=== PATIENT | male | born 1945 | race Caucasian/White ===

== ENCOUNTER 2017-09-17 08:42 | Day surgery (SDC) | payer MEDICARE ==
[2017-09-14 10:21] LABS: BASOPHILS # (AUTO) 0.07 x10^3/uL (0-0.1); BASOPHILS % (AUTO) 1 % (0-1); EOSINOPHILS # (AUTO) 0.28 x10^3/uL (0-0.4); EOSINOPHILS % (AUTO) 3 % (1-7); LYMPHOCYTES # (AUTO) 1.94 x10^3/uL (1-3.4); LYMPHOCYTES % (AUTO) 21 % (22-44); MD NO; MEAN CORPUSCULAR HGB CONC 34.9 g/dL (33.2-36.2); MEAN CORPUSCULAR VOLUME 97.5 fL (81-97); MEAN PLATELET VOLUME 9.1 fL (7.4-10.4); MONOCYTES # (AUTO) 0.69 x10^3/uL (0.2-0.8); MONOCYTES % (AUTO) 7 % (2-9); NEUTROPHILS # (AUTO) 6.38 x10^3/uL (1.8-6.8); NEUTROPHILS % (AUTO) 68 % (42-75); PLATELET COUNT 200 x10^3/uL (130-400); RED BLOOD COUNT 4.27 x10^6/uL (4.38-5.82); RED CELL DISTRIBUTION WIDTH 13.4 % (9.4-14.8)
[2017-09-14 10:27] LABS: ALANINE AMINOTRANSFERASE 26 U/L (12-78); ALBUMIN 3.5 g/dL (3.4-5.0); ANION GAP 7 mmol/L (5-15); CHLORIDE 114 mmol/L (98-107); CREATININE 0.77 mg/dL (0.7-1.3)
[2017-09-14 10:29] LABS: ALKALINE PHOSPHATASE 97 U/L (45-117); BILIRUBIN,TOTAL 0.5 mg/dL (0.2-1.0); TOTAL PROTEIN 6.5 g/dL (6.4-8.2)
[~2017-09-17] VITALS: Ht 175.3 cm; Wt 90.8 kg
[~2017-09-17 08:42] MED LIST: ASPI-496 PO; FOCUS PO; IBUP200T49 PO; LISI40TA PO; MULT1TAB60 PO; NAPR250T6 PO; NIAC250T7 PO
[2017-09-17] MEDS ORDERED: LACTATED RINGERS 1,000 ML IV SCH (08:56)
[2017-09-17] MEDS ORDERED: GABAPENTIN 300 MG CAPSULE PO ONE (09:00)
[2017-09-17] MEDS ORDERED: ACETAMINOPHEN 500 MG TABLET PO ONE (09:00)
[2017-09-17 09:33] VITALS: BP 158/83
[2017-09-17] MEDS ORDERED: FENTANYL PF 100 MCG/2ML ONE (10:23)
[2017-09-17] MEDS ORDERED: DEXAMETHASONE 4 MG/ML, 1ML ONE (10:26)
[2017-09-17] MEDS ORDERED: SUCCINYLCHOLINE 20 MG/ML, 10ML ONE (10:26)
[2017-09-17] MEDS ORDERED: NEOSTIGMINE 1 MG/ML, 10ML ONE (10:26)
[2017-09-17] MEDS ORDERED: LIDOCAINE GEL 2%, 5ML ONE (10:26)
[2017-09-17] MEDS ORDERED: GLYCOPYRROLATE 0.2MG/1ML, 5ML ONE (10:26)
[2017-09-17] MEDS ORDERED: PROPOFOL 10 MG/ML, 20ML ONE (10:26)
[2017-09-17] MEDS ORDERED: CEFAZOLIN 1,000 MG ONE (10:26)
[2017-09-17] MEDS ORDERED: ONDANSETRON 2MG/ML, 2ML ONE (10:26)
[2017-09-17] MEDS ORDERED: ROCURONIUM 10MG/ML,5ML ONE (10:26)
[2017-09-17] MEDS ORDERED: BUPIVACAINE/PF-EPI 0.5% 1:200K ONE ×2 (10:35→10:57)
[2017-09-17] MEDS ORDERED: KETOROLAC 30 MG/1 ML ONE (11:43)
[2017-09-17] MEDS ORDERED: FENTANYL PF 100 MCG/2ML IV PRN (12:30)
[2017-09-17] MEDS ORDERED: PROMETHAZINE 25 MG/ML, 1ML IV PRN (12:30)
[2017-09-17] MEDS ORDERED: MIDAZOLAM 1 MG/ML, 2ML IV PRN (12:30)
[2017-09-17] MEDS ORDERED: ONDANSETRON 2MG/ML, 2ML IV PRN (12:30)
[2017-09-17] MEDS ORDERED: ALBUTEROL/IPRATROPIUM 2.5MG/0.5MG, 3 ML NPPB PRN (12:30)
[2017-09-17] MEDS ORDERED: LABETALOL 5MG/ML, 20ML IV PRN (12:30)
[2017-09-17] MEDS ORDERED: OXYcodone 5 MG/5 ML ORAL.SOL UDC PO PRN (12:30)
[2017-09-17] MEDS ORDERED: SCOPOLAMINE PATCH, 1.5MG PATCH.TD72 TD PRN (12:30)
[2017-09-17] MEDS ORDERED: OXYcodone 5 MG/5 ML ORAL.SOL UDC ONE (13:05)
[2017-09-17] MEDS ORDERED: HYDROmorphone 2 MG/ML, 1ML ONE (13:05)
[2017-09-17] MEDS: HYDROmorphone 1 MG/ML, 1ML IV PRN ×3 (13:09→13:34)
== END 2017-09-17 19:12 | disposition home or self-care (01) ==
LOC: OUT 08:42
PROVIDERS: ATTEND Surgery
DX: K40.91 Unilateral inguinal hernia, without obstruction or gangrene, recurrent (principal); I10 Essential (primary) hypertension; G89.29 Other chronic pain; Z90.49 Acquired absence of other specified parts of digestive tract
CPT/HCPCS: 36415; 49651; 80053; 85025; 93005; J0330; J0690; J1100; J1170; J1885; J2405; J2704; J2710; J3010; J3490; J7120; C1781

== ENCOUNTER → 2018-05-13 | Outpatient (CLI) | payer MEDICARE ==
[~2018-05-13] MED LIST changes: +REGADENOSON 0.4 MG/5 ML SYRINGE ONE
== END | disposition home or self-care (01) ==
LOC: CFH 11:54
PROVIDERS: ATTEND Internal Medicine Cardiovascular Disease
DX: Z01.810 Encounter for preprocedural cardiovascular examination (principal); I35.1 Nonrheumatic aortic (valve) insufficiency; I25.9 Chronic ischemic heart disease, unspecified; I10 Essential (primary) hypertension; Z87.891 Personal history of nicotine dependence
CPT/HCPCS: 78452; 93017; 93306; A9502; J2785

== ENCOUNTER 2018-06-27 08:13 | Day surgery (SDC) | payer MEDICARE ==
[2018-06-25 10:13] VITALS: BP 156/84
[2018-06-25 10:20] LABS: BASOPHILS # (AUTO) 0.09 x10^3/uL (0-0.1); BASOPHILS % (AUTO) 1 % (0-1); EOSINOPHILS # (AUTO) 0.28 x10^3/uL (0-0.4); EOSINOPHILS % (AUTO) 3 % (1-7); LYMPHOCYTES # (AUTO) 1.96 x10^3/uL (1-3.4); LYMPHOCYTES % (AUTO) 20 % (22-44); MD NO; MEAN CORPUSCULAR HEMOGLOBIN 34.3 pg (27.5-34.5); MEAN CORPUSCULAR HGB CONC 34.9 g/dL (33.2-36.2); MEAN CORPUSCULAR VOLUME 98.2 fL (81-97); MEAN PLATELET VOLUME 9.2 fL (7.4-10.4); MONOCYTES # (AUTO) 0.56 x10^3/uL (0.2-0.8); MONOCYTES % (AUTO) 6 % (2-9); NEUTROPHILS # (AUTO) 6.91 x10^3/uL (1.8-6.8); NEUTROPHILS % (AUTO) 71 % (42-75); PLATELET COUNT 146 x10^3/uL (130-400); RED BLOOD COUNT 4.54 x10^6/uL (4.38-5.82); RED CELL DISTRIBUTION WIDTH 13.6 % (9.4-14.8)
[2018-06-25 10:28] LABS: INTERNATIONAL NORMALIZED RATIO 1.04 (0.93-1.1); PROTHROMBIN TIME 10.9 Seconds (9.6-11.5)
[2018-06-25 10:29] LABS: ANION GAP 5 mmol/L (5-15); CALCIUM 9.3 mg/dL (8.5-10.1); CHLORIDE 116 mmol/L (98-107)
[2018-06-25 10:30] LABS: CREATININE 0.85 mg/dL (0.7-1.3)
[~2018-06-27] VITALS: Ht 175.3 cm; Wt 95.5 kg
[~2018-06-27 08:13] MED LIST changes: +ASA/500T PO; +CHOL100012 PO; +IRON18TA PO; -REGADENOSON 0.4 MG/5 ML SYRINGE ONE; +TELM80TA PO; +VITA10004 PO
[2018-06-27] MEDS ORDERED: SODIUM CHLORIDE 0.9% 1,000 ML IV SCH ×2 (08:24→12:00)
[2018-06-27] MEDS ORDERED: DIPHENHYDRAMINE 50 MG/ML, 1ML IVPush ONE (08:30)
[2018-06-27] MEDS ORDERED: DIPHENHYDRAMINE 50 MG/ML, 1ML ONE (08:45)
[2018-06-27] MEDS ORDERED: VERAPAMIL 2.5 MG/ML, 2ML ONE (10:40)
[2018-06-27] MEDS ORDERED: FENTANYL PF 100 MCG/2ML ONE (10:40)
[2018-06-27] MEDS ORDERED: NITROGLYCERIN 5 MG/ML, 10ML ONE (10:40)
[2018-06-27] MEDS ORDERED: TICAGRELOR 90 MG TABLET ONE (10:40)
[2018-06-27] MEDS ORDERED: BIVALIRUDIN 250 MG ONE (10:40)
[2018-06-27] MEDS ORDERED: MIDAZOLAM 1 MG/ML, 5ML ONE (10:40)
[2018-06-27] MEDS ORDERED: HEPARIN 1,000 UNITS/ML, 10ML ONE (10:41)
[2018-06-27] MEDS ORDERED: LIDOCAINE 2%, 20ML ONE (10:41)
== END 2018-06-27 14:45 | disposition home or self-care (01) ==
LOC: CACL 08:13
PROVIDERS: ATTEND Internal Medicine Cardiovascular Disease
DX: I25.10 Atherosclerotic heart disease of native coronary artery without angina pectoris (principal); I10 Essential (primary) hypertension; Z87.891 Personal history of nicotine dependence; Z79.899 Other long term (current) drug therapy; Z79.01 Long term (current) use of anticoagulants
CPT/HCPCS: 36415; 80048; 85025; 85610; 85730; 93458; 99156; 99157; C1769; C1894; J1200; J1644; J2250; J3010; Q9967; J0583

== ENCOUNTER 2018-08-27 09:42 | Outpatient (CLI) | payer MEDICARE, OTHER ==
[2018-08-27] MEDS ORDERED: ASPI325T17 PO (10:35)
[2018-08-27 11:38] LABS: ALANINE AMINOTRANSFERASE 26 U/L (12-78); ANION GAP 9 mmol/L (5-15); CALCIUM 9.6 mg/dL (8.5-10.1); CHLORIDE 112 mmol/L (98-107)
[2018-08-27 11:40] LABS: MICROSCOPIC NOT IND
[2018-08-27 11:41] LABS: ALKALINE PHOSPHATASE 96 U/L (45-117); BILIRUBIN,TOTAL 1.2 mg/dL (0.2-1.0); CREATININE 0.92 mg/dL (0.7-1.3); TOTAL PROTEIN 6.8 g/dL (6.4-8.2)
[2018-08-27 11:47] LABS: CULTURE INDICATED? NO
[2018-08-27 12:28] LABS: BASOPHILS # (AUTO) 0.04 x10^3/uL (0-0.1); BASOPHILS % (AUTO) 1 % (0-1); EOSINOPHILS # (AUTO) 0.25 x10^3/uL (0-0.4); EOSINOPHILS % (AUTO) 3 % (1-7); LYMPHOCYTES # (AUTO) 1.89 x10^3/uL (1-3.4); LYMPHOCYTES % (AUTO) 21 % (22-44); MD NO; MEAN CORPUSCULAR HEMOGLOBIN 34.5 pg (27.5-34.5); MEAN CORPUSCULAR HGB CONC 34.4 g/dL (33.2-36.2); MEAN CORPUSCULAR VOLUME 100.4 fL (81-97); MEAN PLATELET VOLUME 10.1 fL (7.4-10.4); MONOCYTES % (AUTO) 7 % (2-9); NEUTROPHILS # (AUTO) 6.05 x10^3/uL (1.8-6.8); NEUTROPHILS % (AUTO) 69 % (42-75); PLATELET COUNT 159 x10^3/uL (130-400); RED BLOOD COUNT 4.64 x10^6/uL (4.38-5.82); RED CELL DISTRIBUTION WIDTH 14.1 % (9.4-14.8)
== END 2018-08-27 23:59 | disposition home or self-care (01) ==
LOC: STAR 09:42
PROVIDERS: ATTEND Orthopaedic Surgery
DX: Z01.818 Encounter for other preprocedural examination (principal); I44.0 Atrioventricular block, first degree; I45.10 Unspecified right bundle-branch block; M17.11 Unilateral primary osteoarthritis, right knee; M25.562 Pain in left knee
CPT/HCPCS: 36415; 80053; 81003; 85025; 87081; 87147; 87806; 93005; G0475

== ENCOUNTER 2018-09-02 06:03 | Observation (INO) | payer MEDICARE, OTHER ==
[~2018-09-02] VITALS: Ht 175.3 cm; Wt 95.2 kg
[~2018-09-02 06:03] MED LIST changes: +ASPI325T17 PO
[2018-09-02] MEDS ORDERED: LACTATED RINGERS 1,000 ML IV SCH (06:23)
[2018-09-02 06:27] VITALS: BP 148/77
[2018-09-02] MEDS ORDERED: VANCOMYCIN PMX 1GM/200ML 200 ML IVPB ONE ×2 (06:30→07:30)
[2018-09-02] MEDS ORDERED: KETOROLAC 60 MG/2 ML ONE (06:33)
[2018-09-02] MEDS ORDERED: TRANEXAMIC ACID 100 MG/ML, 10ML ONE (06:33)
[2018-09-02] MEDS ORDERED: morphine SULFATE/PF 1 MG/ML, 10ML ONE (06:34)
[2018-09-02] MEDS ORDERED: EPINEPHRINE 1 MG/ML, 1ML ONE (06:34)
[2018-09-02] MEDS ORDERED: ROPIvacaine/PF 0.2%, 20 ML ONE (06:34)
[2018-09-02] MEDS ORDERED: SODIUM CHLORIDE 0.9% 50 ML ONE (06:34)
[2018-09-02] MEDS ORDERED: BACITRACIN 50,000 UNIT ONE (06:34)
[2018-09-02] MEDS ORDERED: MIDAZOLAM 1 MG/ML, 2ML ONE (07:10)
[2018-09-02] MEDS ORDERED: FENTANYL PF 250 MCG/5ML ONE (07:10)
[2018-09-02] MEDS: D5%-0.45% NACL 1,000 ML IV SCH ×4 (07:23→19:33)
[2018-09-02] MEDS ORDERED: SUCCINYLCHOLINE 20 MG/ML, 10ML ONE (07:28)
[2018-09-02] MEDS ORDERED: ROCURONIUM 10 MG/ML,10ML ONE (07:28)
[2018-09-02] MEDS ORDERED: DEXAMETHASONE 4 MG/ML, 1ML ONE (07:28)
[2018-09-02] MEDS ORDERED: CEFAZOLIN 1,000 MG ONE (07:28)
[2018-09-02] MEDS ORDERED: PROPOFOL 10 MG/ML, 20ML ONE (07:28)
[2018-09-02] MEDS ORDERED: ONDANSETRON 2MG/ML, 2ML ONE (07:28)
[2018-09-02] MEDS ORDERED: DIPHENHYDRAMINE 50 MG CAPSULE PO PRN (07:30)
[2018-09-02] MEDS ORDERED: LORazepam 2 MG/ML, 1ML IVPush PRN (07:30)
[2018-09-02] MEDS ORDERED: ACETAMINOPHEN 325 MG TABLET PO PRN (07:30)
[2018-09-02] MEDS ORDERED: morphine SULFATE 10 MG/ML, 1ML IVPush PRN (07:30)
[2018-09-02] MEDS ORDERED: ONDANSETRON 2MG/ML, 2ML IVPush PRN ×2 (07:30→08:00)
[2018-09-02] MEDS ORDERED: ALBUTEROL SULFATE 2.5 MG/3 ML NPPB PRN (08:00)
[2018-09-02] MEDS ORDERED: HYDROmorphone 1 MG/ML, 1ML INJ IV PRN (08:00)
[2018-09-02] MEDS ORDERED: MEPERIDINE/PF 25MG/0.5ML IVPush PRN (08:00)
[2018-09-02] MEDS ORDERED: KETOROLAC 30 MG/1 ML IV PRN (08:00)
[2018-09-02] MEDS ORDERED: LABETALOL 5MG/ML, 20ML IV PRN (08:00)
[2018-09-02] MEDS ORDERED: hydrALAzine 20 MG/ML, 1ML IV PRN (08:00)
[2018-09-02] MEDS ORDERED: METOCLOPRAMIDE 5 MG/ML, 2ML IV PRN (08:00)
[2018-09-02] MEDS ORDERED: PROMETHAZINE 25 MG/ML, 1ML IV PRN (08:00)
[2018-09-02] MEDS ORDERED: FENTANYL PF 100 MCG/2ML ONE (09:35)
[2018-09-02] MEDS ORDERED: OXYcodone 5 MG/5 ML ORAL.SOL UDC ONE ×2 (09:35→10:02)
[2018-09-02] MEDS ORDERED: ACETAMINOPHEN 650 MG/20.3 ML UDC ONE (09:35)
[2018-09-02] MEDS: OXYcodone 5 MG/5 ML ORAL.SOL UDC PO PRN ×2 (09:37→10:03)
[2018-09-02] MEDS: FENTANYL PF 100 MCG/2ML IV PRN ×3 (09:40→10:16)
[2018-09-02 11:00] VITALS: BP 119/62
[2018-09-02] MEDS: IRON MC SCH ×2 (11:30→19:29)
[2018-09-02] MEDS: [UNRECOGNIZED DRUG - OTHER] PO SCH ×3 (11:30→21:48)
[2018-09-02] MEDS: CHOLECALCIFEROL MC SCH ×2 (11:30→19:29)
[2018-09-02 12:15] VITALS: BP 118/67
[2018-09-02] MEDS ORDERED: TRANEXAMIC ACID 1,000 MG in SODIUM CHLORIDE 0.9% 100 ML IV ONE (13:00)
[2018-09-02] MEDS: CEFAZOLIN PMX 2GM/50ML 50 ML IVPB SCH ×2 (15:26→23:32)
[2018-09-02] MEDS: OXYcodone/APAP 7.5/325MG TABLET PO PRN ×3 (15:26→23:32)
[2018-09-02 19:01] VITALS: BP 113/62
[2018-09-02] MEDS ORDERED: ZOLPIDEM 5MG TABLET PO PRN (21:00)
[2018-09-03 00:11] VITALS: BP 95/50
[2018-09-03] MEDS: IRON MC SCH ×2 (03:13→09:51)
[2018-09-03] MEDS: D5%-0.45% NACL 1,000 ML IV SCH ×3 (03:13→09:51)
[2018-09-03] MEDS: CHOLECALCIFEROL MC SCH ×2 (03:13→09:51)
[2018-09-03] MEDS: [UNRECOGNIZED DRUG - OTHER] PO SCH ×2 (03:14→09:51)
[2018-09-03] MEDS: OXYcodone/APAP 7.5/325MG TABLET PO PRN ×3 (03:33→11:41)
[2018-09-03 03:39] VITALS: BP 94/50
[2018-09-03 07:28] VITALS: BP 123/62
[2018-09-03] MEDS: CEFAZOLIN PMX 2GM/50ML 50 ML IVPB SCH (07:51)
[2018-09-03] MEDS ORDERED: ASPIRIN 325 MG TABLET EC PO SCH (08:00)
[2018-09-03] MEDS ORDERED: DOCUSATE 100 MG CAPSULE PO SCH (09:00)
[2018-09-03] MEDS ORDERED: LOSARTAN 50MG TABLET PO SCH (09:00)
[2018-09-03] MEDS ORDERED: IBUPROFEN 200 MG TABLET PO SCH (09:00)
[2018-09-03 10:34] VITALS: BP 134/66
[2018-09-06] MEDS ORDERED: VITAMIN A 10,000 UNIT CAPSULE PO SCH (09:00)
== END 2018-09-03 13:00 | disposition home or self-care (01) ==
LOC: OUT 06:03 → ORIP 07:23 → 4NOR 10:50
PROVIDERS: ADMIT Orthopaedic Surgery; ATTEND Orthopaedic Surgery
DX: M17.12 Unilateral primary osteoarthritis, left knee (principal)
CPT/HCPCS: 27447; 36415; 73564; 85018; 96365; 96366; 96367; 96375; 97110; 97161; 97165; C1713; C1776; G0378; J0171; J0330; J0690; J1100; J1885; J2250; J2270; J2274; J2405; J2704; J2795; J3010; J3370; J7120

== ENCOUNTER → 2018-12-24 | Outpatient (CLI) | payer MEDICARE, OTHER ==
[2018-12-24 12:59] LABS: BASOPHILS # (AUTO) 0.03 x10^3/uL (0-0.1); BASOPHILS % (AUTO) 0 % (0-1); EOSINOPHILS % (AUTO) 3 % (1-7); LYMPHOCYTES # (AUTO) 1.71 x10^3/uL (1-3.4); LYMPHOCYTES % (AUTO) 24 % (22-44); MD NO; MEAN CORPUSCULAR HGB CONC 33.7 g/dL (33.2-36.2); MEAN CORPUSCULAR VOLUME 94.8 fL (81-97); MEAN PLATELET VOLUME 9.5 fL (7.4-10.4); MONOCYTES # (AUTO) 0.56 x10^3/uL (0.2-0.8); MONOCYTES % (AUTO) 8 % (2-9); NEUTROPHILS # (AUTO) 4.71 x10^3/uL (1.8-6.8); NEUTROPHILS % (AUTO) 65 % (42-75); PLATELET COUNT 156 x10^3/uL (130-400); RED BLOOD COUNT 4.88 x10^6/uL (4.38-5.82); RED CELL DISTRIBUTION WIDTH 15.3 % (9.4-14.8)
[2018-12-24 15:16] LABS: CHLORIDE 113 mmol/L (98-107)
[2018-12-24 15:22] LABS: ALANINE AMINOTRANSFERASE 26 U/L (12-78); ALKALINE PHOSPHATASE 114 U/L (45-117); ANION GAP 6 mmol/L (5-15); BILIRUBIN, DIRECT 0.2 mg/dL (0.1-0.2); BILIRUBIN,TOTAL 0.8 mg/dL (0.2-1.0); CALCIUM 9.1 mg/dL (8.5-10.1); CHOL/HDL RATIO 2.5; CHOLESTEROL, TOTAL 132 mg/dL (140-239); CREATININE 0.85 mg/dL (0.7-1.3); HDL CHOL % 39 % (26-37); HDL CHOLESTEROL (DIRECT) 52 mg/dL (40-60); LDL CHOLESTEROL,CALCULATED 62 mg/dL (54-169); LDL/HDL RATIO 1.2 (0.5-3.0); TRIGLYCERIDES 89 mg/dL (50-200); VLDL CHOLESTEROL 18 mg/dL (0-25)
== END | disposition home or self-care (01) ==
LOC: CFH 09:19
PROVIDERS: ATTEND Internal Medicine Cardiovascular Disease
DX: I25.10 Atherosclerotic heart disease of native coronary artery without angina pectoris (principal); I10 Essential (primary) hypertension; E78.2 Mixed hyperlipidemia; Z87.891 Personal history of nicotine dependence; Z82.49 Family history of ischemic heart disease and other diseases of the circulatory system
CPT/HCPCS: 36415; 80053; 80061; 82248; 85025

== ENCOUNTER 2019-01-24 09:57 | Outpatient (CLI) | payer MEDICARE, OTHER ==
[2019-01-24] MEDS ORDERED: ROSU20TA2 PO (10:21)
[2019-01-24 10:58] LABS: BASOPHILS # (AUTO) 0.04 x10^3/uL (0-0.1); BASOPHILS % (AUTO) 1 % (0-1); EOSINOPHILS # (AUTO) 0.31 x10^3/uL (0-0.4); EOSINOPHILS % (AUTO) 4 % (1-7); LYMPHOCYTES # (AUTO) 1.46 x10^3/uL (1-3.4); LYMPHOCYTES % (AUTO) 20 % (22-44); MD NO; MEAN CORPUSCULAR HEMOGLOBIN 33.3 pg (27.5-34.5); MEAN CORPUSCULAR HGB CONC 33.9 g/dL (33.2-36.2); MEAN CORPUSCULAR VOLUME 98.4 fL (81-97); MONOCYTES # (AUTO) 0.66 x10^3/uL (0.2-0.8); MONOCYTES % (AUTO) 9 % (2-9); NEUTROPHILS # (AUTO) 4.92 x10^3/uL (1.8-6.8); NEUTROPHILS % (AUTO) 67 % (42-75); PLATELET COUNT 180 x10^3/uL (130-400); RED BLOOD COUNT 4.53 x10^6/uL (4.38-5.82); RED CELL DISTRIBUTION WIDTH 15.7 % (9.4-14.8)
[2019-01-24 11:10] LABS: ALBUMIN 3.9 g/dL (3.4-5.0); ANION GAP 5 mmol/L (5-15); CALCIUM 10.1 mg/dL (8.5-10.1); CHLORIDE 113 mmol/L (98-107)
[2019-01-24 11:13] LABS: ALANINE AMINOTRANSFERASE 44 U/L (12-78); ALKALINE PHOSPHATASE 110 U/L (45-117); BILIRUBIN,TOTAL 0.9 mg/dL (0.2-1.0); CREATININE 0.88 mg/dL (0.7-1.3); TOTAL PROTEIN 7.1 g/dL (6.4-8.2)
[2019-01-24 11:14] LABS: MICROSCOPIC AUTO
[2019-01-24 11:19] LABS: CULTURE INDICATED? NO
== END 2019-01-24 23:59 | disposition home or self-care (01) ==
LOC: STAR 09:57
PROVIDERS: ATTEND Orthopaedic Surgery
DX: Z01.818 Encounter for other preprocedural examination (principal); M17.11 Unilateral primary osteoarthritis, right knee; I45.10 Unspecified right bundle-branch block; I44.4 Left anterior fascicular block; R94.31 Abnormal electrocardiogram [ECG] [EKG]
CPT/HCPCS: 36415; 80053; 81001; 85025; 87081; 87389; 93005

== ENCOUNTER 2019-02-03 10:09 | Observation (INO) | payer MEDICARE, OTHER ==
[~2019-02-03] VITALS: Ht 175.3 cm; Wt 94.6 kg
[~2019-02-03 10:09] MED LIST changes: +BACITRACIN 50,000 UNIT ONE; +EPINEPHRINE 1 MG/ML, 1ML ONE; +KETOROLAC 60 MG/2 ML ONE; +ROPIvacaine/PF 0.2%, 20 ML ONE; +ROSU20TA2 PO; +SODIUM CHLORIDE 0.9% 50 ML ONE; +TRANEXAMIC ACID 100 MG/ML, 10ML ONE; +morphine SULFATE/PF 1 MG/ML, 10ML ONE
[2019-02-03] MEDS ORDERED: VANCOMYCIN PMX 1GM/200ML 200 ML IV STA (10:26)
[2019-02-03] MEDS ORDERED: LACTATED RINGERS 1,000 ML IV SCH (10:37)
[2019-02-03] MEDS ORDERED: ACETAMINOPHEN 500 MG TABLET PO ONE (11:00)
[2019-02-03] MEDS ORDERED: GABAPENTIN 300 MG CAPSULE PO ONE (11:00)
[2019-02-03] MEDS ORDERED: ONDANSETRON ODT 8 MG PO ONE (11:00)
[2019-02-03] MEDS ORDERED: MIDAZOLAM 1 MG/ML, 2ML ONE (11:42)
[2019-02-03] MEDS ORDERED: FENTANYL PF 250 MCG/5ML ONE (11:42)
[2019-02-03] MEDS ORDERED: PROPOFOL 50 ML ONE (11:42)
[2019-02-03] MEDS: D5%-0.45% NACL 1,000 ML IV SCH ×2 (12:04→19:58)
[2019-02-03] MEDS ORDERED: CEFAZOLIN 1,000 MG ONE (12:11)
[2019-02-03] MEDS ORDERED: PROMETHAZINE 25 MG/ML, 1ML IV PRN (12:30)
[2019-02-03] MEDS ORDERED: EPHEDRINE 50 MG/ML, 1ML IM PRN (12:30)
[2019-02-03] MEDS ORDERED: ONDANSETRON 2MG/ML, 2ML IV PRN (12:30)
[2019-02-03] MEDS ORDERED: hydrALAzine 20 MG/ML, 1ML IV PRN (12:30)
[2019-02-03] MEDS ORDERED: EPHEDRINE 50 MG/ML, 1ML IVPush PRN (12:30)
[2019-02-03] MEDS ORDERED: OXYcodone 5 MG/5 ML ORAL.SOL UDC PO PRN (12:30)
[2019-02-03] MEDS ORDERED: ACETAMINOPHEN 325 MG TABLET PO PRN (12:30)
[2019-02-03] MEDS ORDERED: LORazepam 2 MG/ML, 1ML IVPush PRN (12:30)
[2019-02-03] MEDS ORDERED: morphine SULFATE 10 MG/ML, 1ML IVPush PRN (12:30)
[2019-02-03] MEDS ORDERED: DIPHENHYDRAMINE 50 MG/ML, 1ML IVPush PRN (12:30)
[2019-02-03] MEDS ORDERED: ONDANSETRON 2MG/ML, 2ML IVPush PRN (12:30)
[2019-02-03] MEDS ORDERED: MORPHINE SULFATE 4 MG/ML, 1ML IVPush PRN (12:30)
[2019-02-03] MEDS ORDERED: DIAZEPAM 5 MG/ML, 2ML IVPush PRN (12:30)
[2019-02-03] MEDS ORDERED: METOPROLOL 1 MG/ML, 5ML IV PRN (12:30)
[2019-02-03] MEDS ORDERED: MIDAZOLAM 1 MG/ML, 2ML IV PRN (12:30)
[2019-02-03] MEDS ORDERED: DIPHENHYDRAMINE 50 MG CAPSULE PO PRN (12:30)
[2019-02-03] MEDS ORDERED: ONDANSETRON ODT 8 MG PO PRN (12:30)
[2019-02-03] MEDS ORDERED: ZOLPIDEM 5MG TABLET PO PRN (12:30)
[2019-02-03] MEDS ORDERED: FENTANYL PF 100 MCG/2ML ONE (14:06)
[2019-02-03] MEDS ORDERED: OXYcodone 5 MG/5 ML ORAL.SOL UDC ONE ×2 (14:06→14:08)
[2019-02-03] MEDS ORDERED: MEPERIDINE/PF 25MG/ML,1ML ONE (14:08)
[2019-02-03] MEDS: MEPERIDINE/PF 25MG/ML,1ML IVPush PRN ×2 (14:10→14:36)
[2019-02-03] MEDS: FENTANYL PF 100 MCG/2ML IV PRN ×2 (14:20→14:28)
[2019-02-03] MEDS ORDERED: HYDROmorphone 1 MG/ML, 1ML INJ ONE (15:44)
[2019-02-03] MEDS ORDERED: HYDROmorphone 2 MG/ML, 1ML IVPush PRN (16:00)
[2019-02-03 17:50] VITALS: BP 120/70
[2019-02-03] MEDS ORDERED: VANCOMYCIN PMX 1GM/200ML 200 ML IVPB ONE (18:00)
[2019-02-03] MEDS ORDERED: TRANEXAMIC ACID 1,000 MG in SODIUM CHLORIDE 0.9% 100 ML IV ONE ×2 (18:00→20:00)
[2019-02-03 20:42] VITALS: BP 118/70
[2019-02-03] MEDS: CEFAZOLIN PMX 2GM/50ML 50 ML IVPB SCH (21:01)
[2019-02-04 00:11] VITALS: BP 129/74
[2019-02-04] MEDS: OXYcodone/APAP 7.5/325MG TABLET PO PRN ×4 (00:26→12:56)
[2019-02-04] MEDS: D5%-0.45% NACL 1,000 ML IV SCH ×3 (01:00→11:56)
[2019-02-04] MEDS: CEFAZOLIN PMX 2GM/50ML 50 ML IVPB SCH ×2 (04:24→13:07)
[2019-02-04 07:48] VITALS: BP 123/67
[2019-02-04] MEDS ORDERED: VANCOMYCIN PMX 1GM/200ML 200 ML IV ONE (12:00)
[2019-02-04 15:05] VITALS: BP 121/60
[2019-02-04] MEDS ORDERED: ASPIRIN 325 MG TABLET EC PO SCH (17:00)
[2019-02-04] MEDS ORDERED: DOCUSATE 100 MG CAPSULE PO SCH (21:00)
== END 2019-02-04 15:35 | disposition home or self-care (01) ==
LOC: OUT 10:09 → 4NE 17:19 → OUT 22:09 → ORIP 22:10 → 4NE 22:55 → DCLOUNGE 02-04 15:31
PROVIDERS: ADMIT Orthopaedic Surgery; ATTEND Orthopaedic Surgery
DX: M17.11 Unilateral primary osteoarthritis, right knee (principal); I10 Essential (primary) hypertension; Z87.891 Personal history of nicotine dependence; Z79.899 Other long term (current) drug therapy; Z79.82 Long term (current) use of aspirin
CPT/HCPCS: 27447; 73560; 96365; 96366; 96367; 97110; 97161; 97165; C1713; C1776; G0378; J0171; J0690; J1170; J1885; J2175; J2250; J2274; J2704; J2795; J3010; J3370; J7120; Q0162

== ENCOUNTER → 2019-02-18 | Outpatient (CLI) | payer MEDICARE, OTHER ==
[~2019-02-18] MED LIST changes: -BACITRACIN 50,000 UNIT ONE; -EPINEPHRINE 1 MG/ML, 1ML ONE; -KETOROLAC 60 MG/2 ML ONE; -ROPIvacaine/PF 0.2%, 20 ML ONE; -SODIUM CHLORIDE 0.9% 50 ML ONE; -TRANEXAMIC ACID 100 MG/ML, 10ML ONE; -morphine SULFATE/PF 1 MG/ML, 10ML ONE
== END | disposition home or self-care (01) ==
LOC: CFH 10:49
PROVIDERS: ATTEND Orthopaedic Surgery
DX: M79.89 Other specified soft tissue disorders (principal)

== ENCOUNTER → 2020-03-05 | Outpatient (CLI) | payer MEDICARE ==
[~2020-03-05] MED LIST changes: +MULT-449 PO; -MULT1TAB60 PO
== END | disposition home or self-care (01) ==
LOC: CFH 12:05
PROVIDERS: ATTEND Nurse Practitioner
DX: M19.071 Primary osteoarthritis, right ankle and foot (principal); M77.31 Calcaneal spur, right foot; M25.871 Other specified joint disorders, right ankle and foot

== ENCOUNTER 2020-11-05 08:45 | Outpatient (CLI) | payer MEDICARE ==
[~2020-11-05 08:45] MED LIST changes: -LISI40TA PO; +LISI40TA9 PO; +NAPR-872 PO; -NAPR250T6 PO; -VITA10004 PO; +VITA100087 PO
== END 2020-11-05 23:59 | disposition home or self-care (01) ==
LOC: CFH 08:45
PROVIDERS: ATTEND Orthopaedic Surgery
DX: M19.071 Primary osteoarthritis, right ankle and foot (principal); M25.471 Effusion, right ankle